=== PATIENT | female | born 1990 | race Native Hawaiian/Other Pacific Islander ===

== ENCOUNTER 2017-06-30 13:13 | Emergency (ER) | payer BC ==
[~2017-06-30] VITALS: Ht 172.7 cm; Wt 97.5 kg
[2017-06-30 13:37] VITALS: TEMP 98.7
[2017-06-30 15:13] LABS: PLATELET COUNT 299 K/uL (152-353)
[2017-06-30 16:00] VITALS: BP 114/61
== END 2017-06-30 16:05 | disposition home or self-care (01) ==
LOC: ED 13:13
DX: N39.0 Urinary tract infection, site not specified (principal); R10.9 Unspecified abdominal pain
CPT/HCPCS: 36415; 81000; 85027; 87077; 87086; 87088; 87186; 96365; 96375; 99284; J0696; J1885; J2405

== ENCOUNTER 2018-07-24 08:48 | Emergency (ER) | payer OTHER ==
[~2018-07-24] VITALS: Ht 170.2 cm; Wt 95.3 kg
[2018-07-24 08:58] VITALS: TEMP 97.6
[2018-07-24 10:13] LABS: PLATELET COUNT 215 K/uL (152-353)
[2018-07-24 10:22] LABS: POTASSIUM 3.9 mmol/L (3.6-5.2)
[2018-07-24 13:07] VITALS: BP 121/76
== END 2018-07-24 13:09 | disposition home or self-care (01) ==
LOC: ED 08:48
PROVIDERS: Emergency Medicine
DX: N20.1 Calculus of ureter (principal)
CPT/HCPCS: 36415; 80053; 81000; 81025; 82150; 83690; 85027; 96374; 96375; 99284; J1885; J2175; J2405; Q9963

== ENCOUNTER 2019-03-12 10:37 | Emergency (ER) | payer OTHER ==
[~2019-03-12] VITALS: Ht 170.2 cm; Wt 77.1 kg
[2019-03-12 10:45] VITALS: TEMP 98.1
[2019-03-12 11:20] LABS: PLATELET COUNT 285 K/uL (152-353)
[2019-03-12 11:31] LABS: POTASSIUM 3.8 mmol/L (3.6-5.2)
[2019-03-12 12:22] VITALS: BP 124/75
== END 2019-03-12 12:22 | disposition home or self-care (01) ==
LOC: ED 10:37
PROVIDERS: Emergency Medicine
DX: N20.1 Calculus of ureter (principal)
CPT/HCPCS: 36415; 80053; 81000; 81025; 85027; 87077; 87086; 87088; 87186; 96360; 96374; 96375; 99284; J1885; J2405